=== PATIENT | female | born 1980 | race Caucasian/White ===

== ENCOUNTER 2018-03-18 12:59 | Emergency (ER) | payer BC, SELFPAY ==
[2018-03-18 13:01] VITALS: BP 144/99; PULSE 114; RESP 20; TEMP 37.2; O2SAT 95; BMI 27.8
[2018-03-18 13:17] VITALS: O2SAT 97
--- NOTE | 2018-03-18 13:29 | EKG12_ITS ---
Test Reason : SOB Blood Pressure : / mmHG Vent. Rate : 104 BPM Atrial Rate : 104 BPM P-R Int : 154 ms QRS Dur : 086 ms QT Int : 338 ms P-R-T Axes : 031 030 002 degrees QTc Int : 444 ms Sinus tachycardia Poor R wave progression Confirmed by ERNESTO DALEY, ROSS ([id number]), continuity editor CAROL HAWKINS ([id number] on 03/23/2018 1:47:09 PM Referred By: CHRIS Confirmed By:ROSS OROZCO MD
--- NOTE | 2018-03-18 13:29 | CT_ITS ---
STUDY: CTA CHEST REASON FOR EXAM: Female, 37 years old. Dyspnea. Chest congestion. History of breast cancer. RADIATION DOSAGE (If Supplied By Facility): CTDIvol = ( 6.46 ) mGy, DLP = ( 275.49 ) mGycm TECHNIQUE: The examination was performed with the intravenous administration of 100 ml of Isovue 300 contrast material. Post-processing of the angiographic images was performed, with multiplanar reformation and 3D reconstruction. Individualized dose optimization techniques were used for this CT. COMPARISON: Comparison is made with prior study dated December 10, 2016. FINDINGS: The previously seen bilateral breast implants have been removed. Surgical clips are seen in the left axillary region. Prior bilateral mastectomy with bilateral breast reconstruction surgery. Normal enhancement of the main pulmonary artery and right and left pulmonary arteries. Normal enhancement of the bilateral peripheral pulmonary arteries. There is no demonstrated pulmonary embolism. Normal thoracic aorta and visualized great vessels. There is no demonstrated aortic dissection. Normal heart and pericardium. Normal mediastinum. Normal hilar regions. Normal visualized trachea and bronchi. The lungs are well expanded. Normal pulmonary parenchyma. Normal pleura. Normal chest wall structures. Normal osseous structures. Fatty infiltration of the liver. Small hiatal hernia. CT/CTA Chest W/WO Contrast IMPRESSION: No acute abnormality is seen. Electronically Signed: Jordan Rodgers MD at 14:57 EDT Tel [phone], Service support ,
[2018-03-18] MEDS: 0.9% Normal Saline 1,000 ML 999 ML IV (13:36)
[2018-03-18 13:50] LABS: Absolute Lymphocyte Count 1.02 X10^3/ul (0.83-4.51); Absolute Neutrophil Count 3.6 X10^3/uL (2.0-7.7); Basophil# 0.01 X10^3/uL; Basophil% 0.2 % (0-1); Eosinophil# 0.15 X10^3/uL; Eosinophils% 2.8 % (0-5); Hematocrit 37.8 % (37-47); Hemoglobin 12.4 g/dl (12.0-15.0); Lymphocyte # 1.02 X10^3/ul (4.0); Lymphocyte % 18.9 % (19-41); Mean Corp Hgb Conc 32.8 g/gl (32-36); Mean Corpuscular Hgb 27.7 pg (27.0-32.0); Mean Corpuscular Volume 84.4 fL (81-99); Mean Platelet Vol. 10.1 fl (6.2-12.0); Monocyte# 0.62 X10^3/uL; Monocyte% 11.5 % (0-10); Neutrophil % 66.6 % (47-70); POSITIVE COUNT NO; POSITIVE DIFFERENTIAL NO; POSITIVE MORPHOLOGY NO; Platelet Count 153 K/mm3 (150-450); RBC Distribution Width CV 13.5 % (11.6-14.6); RBC Distribution Width SD 41.2 fl (35.1-43.9); Red Blood Count 4.48 M/mm3 (4.2-5.4); White Blood Count 5.4 K/mm3 (4.4-11.0)
[2018-03-18 14:08] LABS: Anion Gap 8 (5-15); BUN 8 mg/dL (7-18); BUN/Creat Ratio 11.4 RATIO (10-20); Calcium,Total 8.9 mg/dL (8.5-10.1); Chloride 106 mmol/L (98-107); EST Glomerular Filtration Rate 100 mL/min (>60); Est Glom Filt Rate - Afr Amer 121 mL/min (>60); Estimated Creatinine Clearance 104.01 ml/min; Glucose 106 mg/dL (74-106); Potassium 3.8 mmol/L (3.5-5.1); Sodium Level 141 mmol/L (136-145)
[2018-03-18 15:09] VITALS: BP 144/89; BP 148/91; PULSE 96; RESP 15; O2SAT 98
--- NOTE | 2018-03-18 15:33 | ED.VISSUMM ---
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 She has a history of breast cancer. She finished chemotherapy in April 2016. She finished radiation in October 2016. She reports that January 31 she had a reconstructive surgery [facility]. She reports she has shortness of breath since February 02. Patient reports that she has had a constant chest tightness since that time. She has a cough that is productive of green/yellow/white sputum. No blood. She has had subjective fever and chills. Denies any ankle or calf pain. No ankle swelling. Physical Examination: Vitals: Stable. Afebrile. General: Well-nourished and well-developed. Head: Normocephalic atraumatic. Neck: Supple, no lymphadenopathy. No JVD. Nontender. Cardiovascular: Regular rate and rhythm. No murmurs. Respiratory: No respiratory distress. Clear to auscultation bilaterally. Abdominal: Soft, nontender, nondistended, normal bowel sounds. No guarding, rebound, or peritoneal signs. Back: Nontender. Extremities: Nontender, no edema. Skin: Normal color, no rash. Neurologic: Alert and oriented ?3. Cranial nerves II through XII are intact. Normal strength and sensation. Psych: Normal affect. Test Results: CTA of chest shows no PE or infiltrate. EKG is sinus tach 104 with no acute changes. CBC is more for lymphocytes of 19 monocytes of 12. Chem-7 normal. Troponin is less than 0.015. Emergency Department Course and Treatment: Patient was given a dose of Sudafed p.o. which is helped greatly with her congestion and her cough is improved as well. Treatment Plan: Patient be discharged instructions to use Karina-D. She will be placed on Flonase. Instructed to follow-up Dr. Mcarthur, who is List for no doc, in 1 week if not improving. Return to the emergency department for any worsening symptoms. Disposition: To home in improved and stable condition. Impression: 1. URI. 2. History of breast cancer. This note was generated with [employer] dictation software. It may contain incorrect words, spelling, and punctuation that were not noted in review of the chart prior to signing ED Disposition - Plan for ED Patient: Disposition: Home or Assisted Living Chief Complaint: Shortness of Breath Instructions: ED Upper Resp Infec No Abx Tx Prescriptions: Fluticasone 0.05% [Flonase Nasal [place]] 2 spray NASAL DAILY #1 bottle Referrals: Iva Mcarthur DO [STAFF PHYSICIAN] - 1 Week if not improving
[2018-03-18 15:38] VITALS: BP 137/89; PULSE 95; RESP 14; O2SAT 97
== END 2018-03-18 15:43 | disposition home or self-care (01) ==
PROVIDERS: Emergency Provider Emergency Medicine
DX: J06.9 Acute upper respiratory infection, unspecified (principal); Z79.899 Other long term (current) drug therapy; Z85.3 Personal history of malignant neoplasm of breast; Z92.21 Personal history of antineoplastic chemotherapy; Z92.3 Personal history of irradiation
CPT/HCPCS: 71275; 80048; 84484; 85025; 93005; 96360; 99284; J7030; Q9967; A4216